=== PATIENT | male | born 1970 | race African-American/Black ===

== ENCOUNTER 2023-08-21 23:08 | Emergency (ER) | payer OTHER ==
[2023-08-21] MEDS ORDERED: Ketorolac Tromethamine 30 MG/ML VIAL ONE (23:26)
[2023-08-22] MEDS ORDERED: Pseudoephedrine HCl 30 MG TAB PO SCH (00:30)
== END 2023-08-22 00:23 ==
LOC: NAV ERS 23:08 → EEVIPCON 23:08 → NAV ERS 08-22 00:23
DX: S29.011A Strain of muscle and tendon of front wall of thorax, initial encounter (principal); R09.81 Nasal congestion; E11.9 Type 2 diabetes mellitus without complications; I10 Essential (primary) hypertension; E78.00 Pure hypercholesterolemia, unspecified; E03.9 Hypothyroidism, unspecified; Z87.891 Personal history of nicotine dependence; Z79.899 Other long term (current) drug therapy; Z79.4 Long term (current) use of insulin; X50.0XXA Overexertion from strenuous movement or load, initial encounter
CPT/HCPCS: 93005; 96374; J1885